=== PATIENT | female | born 1985 | race Caucasian/White ===

== ENCOUNTER 2019-10-24 06:49 | Inpatient (IN) | payer OTHER, SELFPAY ==
[2019-10-24] VITALS (97 sets, daily range): BP systolic 91–163; BP diastolic 49–144; PULSE 76–216; TEMP 36.6–38; O2SAT 97–100; BMI 29.5
[2019-10-24 08:11] LABS: Basophils Percent Auto 0.3 % (0.2-1.2); Eosinophils Absolute Auto 0.1 K/mm3 (0-0.3); Eosinophils Percent Auto 1.1 % (0-4.4); Hematocrit 36.9 % (37.0-47.0); Hemoglobin 12.4 g/dL (12.0-15.0); Immature Granulocyte Absolute 0.05 K/mm3 (0.00-0.031); Immature Granulocyte Percent A 0.5 % (0-0.5); Immature Platelet Fraction Pct 8.2 % (0.9-11.2); Lymphocytes Absolute Auto 1.68 K/mm3 (0.9-3.2); Lymphocytes Percent Auto 16.1 % (18.3-44.2); Mean Corpuscular HGB Conc 33.6 g/dl (32-36); Mean Corpuscular Hemoglobin 31.7 pg (26-34); Mean Corpuscular Volume 94.4 fl (80-100); Mean Platelet Volume 11.4 fl (7.4-10.4); Monocytes Absolute Auto 0.8 K/mm3 (0.1-0.6); Neutrophils Absolute Auto 7.7 K/mm3 (1.3-6.7); Platelet Count Result 128 k/mm3 (150-375); Red Blood Count 3.91 M/mm3 (4.2-5.4); Red Cell Distribution Width 12.1 % (11.5-14.5); White Blood Count 10.4 K/mm3 (4.5-10.0)
--- NOTE | 2019-10-24 08:29 | WPDHPUPDATE1 ---
History and Physical Update Update Date/Time: 10/24/19 08:29 33 yo at 40w2d who presents after SROM. She reports ctx every 5 min. She endorses good movement. She denies any vaginal bleeding. Her has been uncomplicated thus far. History and Physical has been reviewed, including an updated exam of the patient. There are NO changes in the patient's condition. Risks, benefits, and alternatives have been discussed and questions answered. Patient agrees to proceed with procedure. A/P: 33 yo at 40w2d who presents after SROM admit to L&D routine admission orders SROM at 0300 pt refusing cervical exam, last 1 cm in office FHT cat 1 Rh+ GBS neg expectant management
--- NOTE | 2019-10-24 08:39 | LDADM ---
This patient, Gin Pelaez, was admitted to Labor/Delivery/Recovery 107 on 10/24/19 at 06:49. Plans for labor, pain management and were discussed with patient. Patient/family oriented to hospital policies and general routines including ID bracelet, bed and alarms, visiting hours, pain management, procedures, bathroom and other care routines, personal items, smoking policy, room service/diet and guest tray routines, infant security routines, and visiting hours. Patient/Family are encouraged to report perceived risks to care and to ask questions if they do not understand what they are told or what they should do. See OBIX for further documentation.
[2019-10-24] MEDS: LACTATED RINGERS 1,000 ML 125 ML IV CONT ×3 (15:00→21:49)
--- NOTE | 2019-10-24 15:12 | WPDANESEPP ---
Anes - Eval Pre Procedure Procedure: labor epidural Date/Time: 10/24/19 15:12 Surgeon: amy mathews Pre Op Diagnosis: leaking Patient Data Age: 33 Gender: F Height: 1.57 m Weight: 73.18 kg Last Vital Signs Temp 37.2 C 10/24/19 13:15 Pulse 92 10/24/19 14:04 BP 142/70 H 10/24/19 14:04 Allergies Allergy/AdvReac Type Severity Reaction Status Date / Time acetaminophen [From Vicodin] Allergy Rash Verified 10/07/19 13:30 hydrocodone [From Vicodin] Allergy Rash Verified 10/07/19 13:30 Home Medications Medication Instructions Recorded Confirmed Type PNV cmb#95-ferrous fumarate-FA 1 tablet PO DAILY 10/07/19 10/07/19 History [] omega 2-knk-qgx-fish oil 1 cap PO DAILY 10/07/19 10/07/19 History vitamin D3-vitamin K2 (MK4) 5 tablet PO DAILY 10/07/19 10/07/19 History Laboratory Tests 10/24/19 10/24/19 10/24/19 07:36 07:36 07:36 WBC 10.4 K/mm3 H K/mm3 (4.5-10.0) RBC 3.91 M/mm3 L M/mm3 (4.2-5.4) Hgb 12.4 g/dL g/dL (12.0-15.0) Hct 36.9 % L % (37.0-47.0) MCV 94.4 fl fl (80-100) MCH 31.7 pg pg (26-34) MCHC 33.6 g/dl g/dl (32-36) RDW 12.1 % % (11.5-14.5) Plt Count 128 k/mm3 L k/mm3 (150-375) MPV 11.4 fl H fl (7.4-10.4) Immature Gran % (Auto) 0.5 % % (0-0.5) Neut % (Auto) 74.0 % H % (45.5-73.1) Lymph % (Auto) 16.1 % L % (18.3-44.2) Summers % (Auto) 8.0 % % (2.6-8.5) Eos % (Auto) 1.1 % % (0-4.4) Baso % (Auto) 0.3 % % (0.2-1.2) Lymph # (Auto) 1.68 K/mm3 K/mm3 (0.9-3.2) Summers # (Auto) 0.8 K/mm3 H K/mm3 (0.1-0.6) Eos # (Auto) 0.1 K/mm3 K/mm3 (0-0.3) Baso # (Auto) 0.0 K/mm3 K/mm3 (0.0-0.1) Abs Immat Gran (auto) 0.05 K/mm3 H K/mm3 (0.00-0.031) Absolute Neuts (auto) 7.7 K/mm3 H K/mm3 (1.3-6.7) Absolute Nucleated RBC 0.0 K/mm3 K/mm3 (0.0-0.012) Nucleated RBC % 0.0 % % (0.0-0.2) % Immature Plt Fraction 8.2 % % (0.9-11.2) RPR Pending Blood Type O Positive Antibody Screen Negative Patient hx anesthesia problems: none Family hx anesthesia problems: none [facility] Family History Family History (Updated 10/07/19 @ 13:41 by Belem Terry RN) Other Unknown family medical history Social History Social History Smoking status: Never smoker Substance use: never Spiritual care concerns: No Exam Day of Procedure 10/24/19 15:12
[2019-10-24] MEDS: AMPICILLIN 2 GM/NS 100 ML 2 GM/100 ML BAG IVPB (20:05)
[2019-10-24] MEDS: OXYTOCIN 30 UNITS/NS 500 ML 30 UNITS/500 ML BAG 6 UNITS IV CONT (20:18)
[2019-10-25] VITALS (49 sets, daily range): BP systolic 92–194; BP diastolic 53–155; PULSE 56–161; RESP 12–20; TEMP 36.6–37.8; O2SAT 80–100
[2019-10-25] MEDS: AMPICILLIN 1 GM/NS 50 ML 1 GM/50 ML BAG IVPB (00:07)
--- NOTE | 2019-10-25 03:47 | P.PNOB_ITS ---
Pain Control Date/time seen: 10/25/19 03:47 Pain control: epidural Comments: pt has had an anterior lip for several hours. We have tried several attempts at pushing, re-positioning, and pushing again. head is developing a significant amount of caput. station will advance to +1 with contractions but returns to 0 immediately after. Pelvic Exam Dilation (cm): 10 Effacement (%): 100 station: 0 Amniotic membrane status: Ruptured Contractions Monitor mode: External Contraction frequency: 2 Contraction pattern: Regular Status status: Category l Assessment and Plan Pitocin rate (mU/min): 14 Assessment: active labor Plan: Comments: station not advancing despite several hours of pitocin, re- positioning, and pushing. Concern with worsening caput. recommended proceeding with delivery. pt and verbally agreed with plan. will proceed with primary section.
--- NOTE | 2019-10-25 05:36 | WPDANESEPPF ---
Anes - Initial Pre Proc Eval Procedure: Operation Date: 10/25/19 04:00 Proposed Procedures p Section - Jose Beavers MD Date/Time: 10/25/19 04:00 Surgeon: MD Nimesh Pre Op Diagnosis: failure to descend Patient Data Age: 33 Gender: F Height: 1.57 m Weight: 73.18 kg Last Vital Signs Temp 37.1 C 10/25/19 05:24 Pulse 128 H 10/25/19 05:24 Resp 15 10/25/19 05:24 BP 92/83 L 10/25/19 05:24 Pulse Ox 100 10/25/19 05:26 Allergies Allergy/AdvReac Type Severity Reaction Status Date / Time acetaminophen [From Vicodin] Allergy Rash Verified 10/07/19 13:30 hydrocodone [From Vicodin] Allergy Rash Verified 10/07/19 13:30 Home Medications Medication Instructions Recorded Confirmed Type PNV cmb#95-ferrous fumarate-FA 1 tablet PO DAILY 10/07/19 10/07/19 History [] omega 2-dmg-jwr-fish oil 1 cap PO DAILY 10/07/19 10/07/19 History vitamin D3-vitamin K2 (MK4) 5 tablet PO DAILY 10/07/19 10/07/19 History Laboratory Tests 10/24/19 10/24/19 10/24/19 07:36 07:36 07:36 WBC 10.4 K/mm3 H K/mm3 (4.5-10.0) RBC 3.91 M/mm3 L M/mm3 (4.2-5.4) Hgb 12.4 g/dL g/dL (12.0-15.0) Hct 36.9 % L % (37.0-47.0) MCV 94.4 fl fl (80-100) MCH 31.7 pg pg (26-34) MCHC 33.6 g/dl g/dl (32-36) RDW 12.1 % % (11.5-14.5) Plt Count 128 k/mm3 L k/mm3 (150-375) MPV 11.4 fl H fl (7.4-10.4) Immature Gran % (Auto) 0.5 % % (0-0.5) Neut % (Auto) 74.0 % H % (45.5-73.1) Lymph % (Auto) 16.1 % L % (18.3-44.2) Dale % (Auto) 8.0 % % (2.6-8.5) Eos % (Auto) 1.1 % % (0-4.4) Baso % (Auto) 0.3 % % (0.2-1.2) Lymph # (Auto) 1.68 K/mm3 K/mm3 (0.9-3.2) Dale # (Auto) 0.8 K/mm3 H K/mm3 (0.1-0.6) Eos # (Auto) 0.1 K/mm3 K/mm3 (0-0.3) Baso # (Auto) 0.0 K/mm3 K/mm3 (0.0-0.1) Abs Immat Gran (auto) 0.05 K/mm3 H K/mm3 (0.00-0.031) Absolute Neuts (auto) 7.7 K/mm3 H K/mm3 (1.3-6.7) Absolute Nucleated RBC 0.0 K/mm3 K/mm3 (0.0-0.012) Nucleated RBC % 0.0 % % (0.0-0.2) % Immature Plt Fraction 8.2 % % (0.9-11.2) RPR Pending Blood Type O Positive Antibody Screen Negative Patient hx anesthesia problems: none Family hx anesthesia problems: none [facility] Family History Family History Other Unknown family medical history Social History Social History Smoking status: Never smoker Substance use: never Spiritual care concerns: No Anes - Eval Final PreProcedure Day of Procedure 10/25/19 05:36 Heart: regular rate and rhythm Lungs: clear to auscultation and normal air movement Airway: Mallampati scale class 1 Neurological: alert and oriented ASA classification: II Emergent: yes Anesthetic plan: proceed Anesthesia type and monitoring: regional epidural and standard monitoring Informed Consent: The patient's anesthetic plan and its attendant risks and benefits were discussed with the patient/family/POA. Questions were solicited and answers provided to the satisfaction of the patient/family/POA.
--- NOTE | 2019-10-25 06:51 | PM.PROC ---
Procedure Note - Detailed Date of procedure: 10/25/19 Pre-op diagnosis: failure to descend arrest of descent Post-op diagnosis: same Procedure performed: repeat low transverse section Description of procedure: The patient was taken to the operating room where epidural anesthesia was found to be adequate. She was then prepped and draped in the usual sterile fashion in the dorsal supine position with a leftward tilt. A Pfannenstiel skin incision was then made with the scalpel and carried through to the underlying layer of fascia. The fascia was then incised in the midline and the incision extended laterally with the Major scissors. The superior aspect of the fascia was then grasped with the Linda clamps, elevated, and the underlying rectus muscles dissected off bluntly and sharply. Attention was then turned to the inferior aspect of this incision which, in a similar fashion, was grasped, tented up with the Linda clamps, and the rectus muscles dissected off both bluntly and sharply. The rectus muscles were then in the midline, and the peritoneum identified, tented up, and entered sharply with the Metzenbaum scissors. The peritoneal incision was then extended superiorly and inferiorly with good visualization of the bladder. The bladder blade was then inserted and the vesicouterine peritoneum identified, grasped with the pick-ups and entered sharply with the Metzenbaum scissors. This incision was then extended laterally and the bladder flap created digitally. The bladder blade was then reinserted and the lower uterine segment incised in a low, transverse fashion with the scalpel. The uterine incision was then extended laterally with the bandage scissors. The bladder blade was removed and the infant?s head delivered atraumatically. The nose and mouth were suctioned with the bulb suction, and the remainder of the was delivered atraumatically. The cord was clamped and cut. The infant was handed off to the waiting pediatricians (staff). Cord gasses were sent. The placenta was then removed manually, the uterus exteriorized, and cleared of all clots and debris. The uterine incision was repaired with 0 Monocryl in a running, locking fashion. A 2nd imbricating layer of 0-monocryl was placed in the uterus. The uterus was returned to the abdomen. The uterus was then reinspected to ensure hemostasis as were all subfascial tissues. The muscles were re-approximated with 2 interuptted mattress sutures. The fascia was reapproximated with 0 vicryl in a running fashion. The subcutaneous tissue was reapproximated using 3-0 Vicryl in a running fashion. The skin was closed with 4-0 vicryl. The patient tolerated the procedure well. Sponge, lap and needle counts were correct times three. The patient was taken to the recovery room in stable condition. Anesthesia: epidural Surgeon: Jose Beavers MD Estimated blood loss (mL): 620 IV fluids (mL): 1,000 Urine output (mL): 150 Drains: No Packing: No Pathology: none sent Complications: No immediate complications Condition: stable Disposition: floor ( ) Findings: normal appearing uterus, fallopian tubes, and ovaries bilaterally
[2019-10-25] MEDS: OXYTOCIN 30 UNITS/NS 500 ML 30 UNITS/500 ML BAG 125 UNITS IV CONT (07:44)
--- NOTE | 2019-10-25 08:48 | OBPPTRN ---
Patient transferred to post room #288 via stretcher. Oriented to unit, room, information board, rooming in, admission packet and security measures. Patient verbalizes understanding.
[2019-10-25] MEDS: KCL 20 MEQ/D5/0.45% SOD CHL 1,000 ML 125 ML IV CONT (13:44)
[2019-10-25] MEDS: KETOROLAC 30 MG/ML VIAL (*BKC) IV PUSH (13:45)
[2019-10-25] MEDS: IBUPROFEN 600 MG TABLET PO (19:16)
[2019-10-25] MEDS: SIMETHICONE 80 MG TAB.CHEW PO ×2 (19:16→22:44)
[2019-10-25] MEDS: ACETAMINOPHEN 325 MG TABLET 650 MG PO (22:44)
[2019-10-26] MEDS: IBUPROFEN 600 MG TABLET PO ×2 (04:16→10:50)
[2019-10-26] MEDS: SIMETHICONE 80 MG TAB.CHEW PO ×3 (04:30→15:14)
[2019-10-26 05:15] LABS: Basophils Absolute Auto 0.1 K/mm3 (0.0-0.1); Basophils Percent Auto 0.5 % (0.2-1.2); Eosinophils Absolute Auto 0.1 K/mm3 (0-0.3); Eosinophils Percent Auto 0.6 % (0-4.4); Hemoglobin 10.1 g/dL (12.0-15.0); Immature Granulocyte Absolute 0.07 K/mm3 (0.00-0.031); Immature Granulocyte Percent A 0.5 % (0-0.5); Immature Platelet Fraction Pct 4.5 % (0.9-11.2); Lymphocytes Absolute Auto 1.49 K/mm3 (0.9-3.2); Lymphocytes Percent Auto 11.3 % (18.3-44.2); Mean Corpuscular HGB Conc 33.7 g/dl (32-36); Mean Corpuscular Hemoglobin 32.7 pg (26-34); Mean Corpuscular Volume 97.1 fl (80-100); Mean Platelet Volume 11.4 fl (7.4-10.4); Monocytes Absolute Auto 1.1 K/mm3 (0.1-0.6); Monocytes Percent Auto 8.2 % (2.6-8.5); Neutrophils Absolute Auto 10.4 K/mm3 (1.3-6.7); Neutrophils Percent Auto 78.9 % (45.5-73.1); Platelet Count Result 134 k/mm3 (150-375); Red Blood Count 3.09 M/mm3 (4.2-5.4); Red Cell Distribution Width 12.7 % (11.5-14.5); White Blood Count 13.2 K/mm3 (4.5-10.0)
--- NOTE | 2019-10-26 07:07 | P.PNOB_ITS ---
OB - PN: Subj Subjective Date/time seen: 10/26/19 07:07 Patient comments: no complaints, pain well controlled, tolerating diet and flatus present OB - PN: Obj Data Labs CBC & Chem 7: 10/26/19 04:46 Labs: Laboratory Results - last 24 hr 10/26/19 04:46 WBC 13.2 H RBC 3.09 L Hgb 10.1 L Hct 30.0 L MCV 97.1 MCH 32.7 MCHC 33.7 RDW 12.7 Plt Count 134 L MPV 11.4 H Immature Gran % (Auto) 0.5 Neut % (Auto) 78.9 H Lymph % (Auto) 11.3 L Angelina % (Auto) 8.2 Eos % (Auto) 0.6 Baso % (Auto) 0.5 Lymph # (Auto) 1.49 Angelina # (Auto) 1.1 H Eos # (Auto) 0.1 Baso # (Auto) 0.1 Abs Immat Gran (auto) 0.07 H Absolute Neuts (auto) 10.4 H Absolute Nucleated RBC 0.0 Nucleated RBC % 0.0 % Immature Plt Fraction 4.5 OB - PN A/P Plan day: 1 Plan: routine care Comments: patient doing well H/H stable afebrile, VSS incision C/D/I to removed, voiding spontaneously continue routine post op care Time Spent With Patient Time: Total time spent is greater than 50% in coordination of care (as documented) at patient's floor/unit and/or counseling patient: Time with patient: less than 15 minutes Review of Systems Constitutional: Constitutional: Reports no additional constitutional complaints Cardiovascular: Cardiovascular: Reports no additional cardiovascular complaints Respiratory: Respiratory: Reports no additional respiratory complaints Gastrointestinal: Gastrointestinal: Reports no additional gastrointestinal complaints Genitourinary: Genitourinary: Reports no additional female genitourinary complaints Exam Const: General: comfortable and no acute distress Resp: Effort & Inspection: normal respiratory effort Auscultation: clear to auscultation bilaterally Cardio: Rate: regular rate GI: GI Palp: Yes Soft to palpation, Yes Tenderness to palpation present (GI) (around incision ) and No Guarding due to palpation present (GI) Auscultation: normal bowel sounds Other: incision C/D/I, covered with Dermabond Psych: Appearance: grossly normal Mental Status: mental status grossly normal Affect: normal affect
[2019-10-26 07:30] VITALS: BP 123/83; PULSE 80; RESP 16; TEMP 36.8; O2SAT 100
[2019-10-26] MEDS: MULTIVIT/MIN/PREN/FOL AC/IRON TABLET 1 TAB PO (07:32)
[2019-10-26] MEDS: ACETAMINOPHEN 325 MG TABLET 650 MG PO ×3 (07:33→22:59)
[2019-10-26] MEDS: DOCUSATE SODIUM 100 MG CAPSULE PO ×2 (07:33→15:13)
[2019-10-26] MEDS: LANOLIN (LANSINOH) 7.5 GM CREAM 1 APPLIC TOPICAL (07:34)
--- NOTE | 2019-10-26 10:26 | WPDANLDPN2 ---
Anes-Prog Note L&D Date/Time: 10/26/19 10:26 Comfortable throughout: section Neuraxial method: spinal Epidural/Spinal procedure site: clean & non-tender Neuro status: Neuro function grossly intact. Cardiovascular status: normal Respiratory status: normal Airway patency: baseline Mental status: baseline Post-Op hydration status: normal Vital Signs: Last Vital Signs Temp 36.8 C 10/26/19 07:30 Pulse 80 10/26/19 07:30 Resp 16 10/26/19 07:30 BP 123/83 10/26/19 07:30 Pulse Ox 100 10/26/19 07:30 Pain score (VAS): Gin up and walking around room. I/O: Intake & Output 10/25/19 10/26/19 10/26/19 23:59 07:59 15:59 Intake Total 883 Output Total 500 Balance 383 Post-procedural complaints: none Patient feedback: Patient satisfied with anesthetic care.
--- NOTE | 2019-10-26 10:32 | WPDANLDNPN2 ---
Anes-Prog Note L&D-Neuraxial Date/Time: 10/26/19 10:32 Patient feedback: Patient satisfied with post-operative pain management.
[2019-10-26 11:34] LABS: Rapid Plasma Reagin Non-Reactive (NonReactive)
[2019-10-26 14:15] VITALS: BP 120/83; PULSE 96; RESP 20; O2SAT 100
--- NOTE | 2019-10-26 19:00 | PC.NURSE ---
Patient viewed the discharge video Mother & Baby Care, The First Two Weeks . Patient was given the opportunity and encouraged to ask questions. Patient verbalized understanding of information shared and has been given the mother/baby guide for home reference.
[2019-10-26 20:40] VITALS: BP 133/87; PULSE 92; RESP 16; TEMP 37.2; O2SAT 100
[2019-10-27] MEDS: IBUPROFEN 600 MG TABLET PO (03:56)
--- NOTE | 2019-10-27 06:53 | PM.OBPNVD ---
OB - PN: Subj Subjective Date/time seen: 10/27/19 06:53 Patient comments: no complaints and pain well controlled baby status: doing well and nursing well OB - PN: Obj Data Labs CBC & Chem 7: 10/26/19 04:46 Labs: Laboratory Results - last 24 hr 10/24/19 07:36 RPR Non-reactive OB - PN A/P Plan day: 2 Plan: routine care, discharge home and follow up 6 weeks (4 weeks) Time Spent With Patient Time: Total time spent is greater than 50% in coordination of care (as documented) at patient's floor/unit and/or counseling patient: Time with patient: less than 15 minutes Review of Systems Review of Systems: All systems reviewed & are unremarkable except as noted in HPI and below Exam Const: General: no acute distress Eyes: General: appearance normal, both eyes and all related structures Neck: Neck: supple and no JVD Thyroid: thyroid normal Resp: Effort & Inspection: normal respiratory effort Auscultation: clear to auscultation bilaterally Cardio: Rate: regular rate Rhythm: regular rhythm GI: Inspection: normal to inspection (fundus firm) and incision (cdi) Percussion: Yes normal to percussion : General: Yes other (flow light) Skin: General skin exam: no rashes or lesions noted Extrem: General: normal to inspection and no edema Psych: Mental Status: mental status grossly normal Affect: normal affect
--- NOTE | 2019-10-27 07:04 | P.DS_ITS ---
OB - DS: Summary OB Procedures : None OB Procedures Intrapartum: OB Procedures: : None Peripartum Data Delivery Method: Section Procedures: Procedures Operation Date: 10/25/19 04:00 Actual Procedures Side Surgeon p Section Jose Beavers MD complications: none Status at Discharge Functional status at discharge: independent ambulation Overall status at discharge: patient is progressing back to baseline Time Spent with Patient Time attestation: Total time spent providing and/or coordinating discharge services: Time spent: Less than 30 minutes Exam Const: General: comfortable and no acute distress Resp: Effort & Inspection: normal respiratory effort Auscultation: clear to auscultation bilaterally Cardio: Rate: regular rate GI: Inspection: non-distended GI Palp: Yes Soft to palpation, No Firmness to palpation present (GI), Yes Tenderness to palpation present (GI) (mild tenderness over incision ) and No Guarding due to palpation present (GI) Auscultation: normal bowel sounds Psych: Appearance: grossly normal Mental Status: mental status grossly normal DS: Data Data Completed and Pending Pending studies at discharge: Pending at discharge 10/25/19 04:31 Surgical [PTH] Routine Labs on day of discharge: Labs from last 24 hours 10/24/19 07:36 RPR Non-reactive Discharge Plan Discharge Attending physician on discharge: Shashi Rodriguez Discharging Clinician: Shashi Rodriguez Patient Disposition: Home, Self-Care Activity: may shower, no straining, may drive after 2 weeks and pelvic rest Diet: heart healthy Wound Care Instructions: follow printed instructions Patient Instructions: Antibiotic Form Stand Alone Forms: General Discharge Information Follow-up/Referrals: Shashi Rodriguez MD [Physician] - Discharge Medications: No Action PNV cmb#95-ferrous fumarate-FA [] 28 mg iron- 800 mcg Tablet 1 tablet PO DAILY RF: 0 vitamin D3-vitamin K2 (MK4) 1,000-100 unit-mcg Tablet 5 tablet PO DAILY RF: 0 omega 3-mrk-npk-fish oil 900 mg (320 mg- 580mg)-1,360 mg Capsule 1 cap PO DAILY RF: 0 Date of admission: 10/24/19 06:49 Primary Care Provider: PHYSICIAN,STATIONARY ENGINEER APPRENTICE Admitting Provider: Shashi Rodriguez Attending physician on admission: Shashi Rodriguez
[2019-10-27 08:10] VITALS: BP 120/77; PULSE 80; RESP 16; TEMP 37.1; O2SAT 100
[2019-10-27] MEDS: DOCUSATE SODIUM 100 MG CAPSULE PO (09:24)
[2019-10-27] MEDS: MULTIVIT/MIN/PREN/FOL AC/IRON TABLET 1 TAB PO (09:24)
[2019-10-27] MEDS: ACETAMINOPHEN 325 MG TABLET 650 MG PO (09:25)
--- NOTE | 2019-10-27 11:00 | PC.NURSE ---
Observed mother is able to independently latch with appropriate positioning/alignment. She denies any nipple discomfort, is feeding as required and waking infant to feed if needed. has had at least 8 effective feedings in the past 24 hours, and is currently meeting outcomes for weight, output, jaundice and feeding frequencies. Mother states she feels confident to continue effective at home. Reviewed transition to breast milk, signs of adequate intake, and engorgement/relief. Instructed to call ICP if intake/output less than required. Reviewed regular medications mother is taking. Information provided per Trudi. Reviewed community resources on the [facility] website and in the Mom/Baby guide. Information on outpatient services provided. Mother has no further questions at this time.
[2019-10-28 10:00] VITALS: BP 146/93; PULSE 80; RESP 20; TEMP 37.1; O2SAT 98
--- NOTE | 2019-11-03 07:00 | PM.IMHP ---
H&P: HPI History of Present Illness Chief complaint: failure to descend Narrative: 33 yo at 40w2d who presents after SROM. She reports ctx every 5 min. She endorses good movement. She denies any vaginal bleeding. Her has been uncomplicated thus far. History and Physical has been reviewed, including an updated exam of the patient. There are NO changes in the patient's condition. Risks, benefits, and alternatives have been discussed and questions answered. Patient agrees to proceed with procedure. Review of Systems Cardiovascular: Cardiovascular: Denies chest pain, Denies leg edema, Denies palpitations, Denies dyspnea and Denies dyspnea on exertion Respiratory: Respiratory: Denies cough, Denies dyspnea and Denies dyspnea on exertion Gastrointestinal: Gastrointestinal: Denies abdominal pain, Denies constipation, Denies diarrhea, Denies nausea and Denies vomiting Genitourinary: Genitourinary: Denies hematuria, Denies urinary frequency, Denies dysuria, Denies pelvic pain, Denies urinary incontinence and Denies vaginal discharge Neurologic: Reports system reviewed and no additional complaints, except as documented Psychiatric: Psychiatric: Reports no additional psychiatric complaints Endocrine: Endocrine: Denies palpitations [facility] Family History Family History Other Unknown family medical history Social History Social History Smoking status: Never smoker Substance use: never Spiritual care concerns: No Meds Home Medications and Allergies Home Medications Medication Instructions Recorded Confirmed Type PNV cmb#95-ferrous fumarate-FA 1 tablet PO DAILY 10/07/19 10/07/19 History [] omega 2-vwo-owc-fish oil 1 cap PO DAILY 10/07/19 10/07/19 History vitamin D3-vitamin K2 (MK4) 5 tablet PO DAILY 10/07/19 10/07/19 History Allergies Allergy/AdvReac Type Severity Reaction Status Date / Time acetaminophen [From Vicodin] Allergy Rash Verified 10/07/19 13:30 hydrocodone [From Vicodin] Allergy Rash Verified 10/07/19 13:30 Exam Const: General: no acute distress Eyes: EOM: EOMs intact bilaterally Neck: Neck: supple Thyroid: thyroid normal Chest: Breast/axilla inspection: normal inspection of the breasts Breast/axilla palpation: normal palpation of the breasts, normal palpation of the axillae and no axillary lymphadenopathy Resp: Effort & Inspection: normal respiratory effort Auscultation: clear to auscultation bilaterally Cardio: Rate: regular rate Rhythm: regular rhythm GI: Inspection: non-distended GI Palp: Yes Soft to palpation, No Tenderness to palpation present (GI) and No Guarding due to palpation present (GI) Auscultation: normal bowel sounds : General: No bladder normal to palpation External Female Exam: normal external appearance Speculum Exam - Vagina: normal vaginal discharge and No vaginal bleeding Speculum Exam - Cervix: nontender Bimanual exam- vagina & uterus: No bladder normal to palpation and No Cervical tenderness present OB/external & speculum: No vaginal bleeding Skin: General skin exam: normal color and no rashes or lesions noted Neuro: Cognition (Neuro): normal cognition Speech: normal speech Extrem: General: normal to inspection and no edema Psych: Mental Status: mental status grossly normal Affect: normal affect Assessment and Plan Assessment and plan (1) Supervision of high risk , unspecified, third trimester: Code(s): O09.93 - Supervision of high risk , unspecified, third trimester Status: Acute Assessment and Plan: A/P: 33 yo at 40w2d who presents after SROM admit to L&D routine admission orders SROM at 0300 pt refusing cervical exam, last 1 cm in office FHT cat 1 Rh+ GBS neg expectant management
== END 2019-10-27 13:30 | disposition home or self-care (01) | DRG 787 ==
LOC: ANHLDR 10-25 05:38 → ANHOB2 10-25 07:51
PROVIDERS: Student in an Organized Health Care Education/Training Program; Admitting Provider Obstetrics & Gynecology; Visit Provider Obstetrics & Gynecology
PROC: (CPT 59514; principal; 2019-10-25 04:00)
DX: O34.211 Maternal care for low transverse scar from previous cesarean delivery (principal); O75.2 Pyrexia during labor, not elsewhere classified; Z37.0 Single live birth; Z3A.40 40 weeks gestation of pregnancy; O63.1 Prolonged second stage (of labor); O32.4XX0 Maternal care for high head at term, not applicable or unspecified
CPT/HCPCS: 36415; 85025; 85055; 86592; 86850; 86900; 86901; 88307; A9270; J0131; J0290; J1885; J2274; J2370; J2405; J2590; J2795; J3010; J3480; J7120

== ENCOUNTER 2019-10-28 17:35 | Outpatient (CLI) | payer OTHER, SELFPAY ==
[2019-10-28 18:08] VITALS: BP 149/87; PULSE 90
[2019-10-28 18:15] VITALS: BP 137/82; PULSE 78
--- NOTE | 2019-10-28 18:20 | PC.NURSE ---
called, informed pt came in stating her bp at home was 140/100 and she feels like her vision is off and that her bp is high pt states she normally self medicates with progesterone and started again last night because she feels like it is low. Pt states she has had a headache and is alternating motrin and tylenol. Current bp is 149/87, orders received for PIH labs and to instruct the pt not to take progesterone, rest more, focus on being a new mom and recovering.
[2019-10-28 18:30] VITALS: BP 121/76; PULSE 87
[2019-10-28 18:33] LABS: Basophils Percent Auto 0.4 % (0.2-1.2); Eosinophils Absolute Auto 0.2 K/mm3 (0-0.3); Hematocrit 30.9 % (37.0-47.0); Hemoglobin 10.4 g/dL (12.0-15.0); Immature Granulocyte Absolute 0.05 K/mm3 (0.00-0.031); Immature Granulocyte Percent A 0.5 % (0-0.5); Lymphocytes Absolute Auto 1.37 K/mm3 (0.9-3.2); Lymphocytes Percent Auto 14.2 % (18.3-44.2); Mean Corpuscular HGB Conc 33.7 g/dl (32-36); Mean Corpuscular Hemoglobin 32.2 pg (26-34); Mean Corpuscular Volume 95.7 fl (80-100); Mean Platelet Volume 10.3 fl (7.4-10.4); Monocytes Absolute Auto 0.6 K/mm3 (0.1-0.6); Monocytes Percent Auto 5.7 % (2.6-8.5); Neutrophils Absolute Auto 7.4 K/mm3 (1.3-6.7); Neutrophils Percent Auto 77.2 % (45.5-73.1); Platelet Count Result 231 k/mm3 (150-375); Red Blood Count 3.23 M/mm3 (4.2-5.4); Red Cell Distribution Width 11.9 % (11.5-14.5); White Blood Count 9.6 K/mm3 (4.5-10.0)
[2019-10-28 18:45] VITALS: BP 129/77; PULSE 77
[2019-10-28 18:49] LABS: Alanine Aminotransferase 14 U/L (4-35); Albumin Level 3.3 g/dL (3.5-5.1); Alkaline Phosphatase 110 U/L (38-126); Aspartate Amino Transferase 19 U/L (14-36); Bilirubin,Total 0.5 mg/dL (0.2-1.3); Blood Urea Nitrogen 16 mg/dL (7-17); Calcium 9.3 mg/dL (8.4-10.2); Carbon Dioxide 25 mmol/L (22-30); Chloride 106 mmol/L (98-107); Estimated Glomerular Filt Rate > 60; Glucose 109 mg/dL (65-105); Sodium 135 mmol/L (137-145); Uric Acid 3.4 mg/dL (2.5-7.5)
[2019-10-28 19:00] VITALS: BP 135/85; PULSE 80
== END 2019-10-28 19:15 | disposition home or self-care (01) ==
LOC: ANHOBOP 17:40 → ANHOBPP 17:42
PROVIDERS: Visit Provider Obstetrics & Gynecology
DX: O13.9 Gestational [pregnancy-induced] hypertension without significant proteinuria, unspecified trimester (principal); Z3A.00 Weeks of gestation of pregnancy not specified
CPT/HCPCS: 36415; 80053; 84550; 85025; 99199

== ENCOUNTER 2020-02-01 01:28 | Day surgery (SDC) | payer OTHER, SELFPAY ==
[2020-01-19 15:13] VITALS: BMI 23.8
--- NOTE | 2020-01-27 07:43 | PM.IMHP ---
H&P: HPI History of Present Illness Date/Time: 01/27/20 07:43 Chief complaint: Uterine Polyp, Irregular Bleeding Narrative: Gin Pelaez is a 34 year old female is admitted for hysteroscopy dilatation curettage and polypectomy. She has had irregular bleeding. She underwent an ultrasound in the appears to be an 8mm polyp in the uterus. Risks and benefits were reviewed in full. She received the [employer] handout entitled hysteroscopy as well as dilatation curettage respectively. She asked to proceed Review of Systems Review of Systems: All systems reviewed & are unremarkable except as noted in HPI and below PMFSH Family History Family History Other Unknown family medical history Social History Social History Smoking status: Never smoker Substance use: never Spiritual care concerns: No Meds Home Medications and Allergies Home Medications Medication Instructions Recorded Confirmed Type PNV cmb#95-ferrous fumarate-FA 1 tablet PO DAILY 10/07/19 01/19/20 History [] omega 6-zmr-tww-fish oil 1 cap PO DAILY 10/07/19 01/19/20 History vitamin D3-vitamin K2 (MK4) 5 tablet PO DAILY 10/07/19 01/19/20 History Allergies Allergy/AdvReac Type Severity Reaction Status Date / Time hydrocodone [From Vicodin] Allergy Rash Verified 01/19/20 15:14 Exam Const: General: no acute distress Eyes: General: appearance normal, both eyes and all related structures Neck: Neck: supple and no JVD Thyroid: thyroid normal Resp: Effort & Inspection: normal respiratory effort Auscultation: clear to auscultation bilaterally Cardio: Rate: regular rate Rhythm: regular rhythm GI: Inspection: non-distended GI Palp: Yes Soft to palpation, No Tenderness to palpation present (GI) and No Guarding due to palpation present (GI) Auscultation: normal bowel sounds : General: Yes bladder normal to palpation External Female Exam: normal external appearance Speculum Exam - Vagina: normal vaginal discharge and No vaginal bleeding Speculum Exam - Cervix: nontender Bimanual exam- vagina & uterus: bladder normal to palpation and No Cervical tenderness present OB/external & speculum: No vaginal bleeding Skin: General skin exam: no rashes or lesions noted Extrem: General: normal to inspection and no edema Psych: Mental Status: mental status grossly normal Affect: normal affect Assessment and Plan Additional Plan impression: Bleeding suspected secondary to uterine polyp Plan: Hysteroscopy /polypectomy/ dilatation curettage
--- NOTE | 2020-02-01 05:41 | WPDHPUPDATE1 ---
History and Physical Update Update Date/Time: 02/01/20 05:41 History and Physical has been reviewed, including an updated exam of the patient. There are NO changes in the patient's condition. Risks, benefits, and alternatives have been discussed and questions answered. Patient agrees to proceed with procedure.
[2020-02-01] MEDS: LACTATED RINGERS 1,000 ML 30 ML IV CONT (06:20)
[2020-02-01] MEDS: ACETAMINOPHEN 500 MG TABLET 1000 MG PO (06:24)
[2020-02-01 06:30] VITALS: BP 116/82; PULSE 59; RESP 16; TEMP 36.6; O2SAT 100
--- NOTE | 2020-02-01 06:53 | WPDANESEPPF ---
Anes - Initial Pre Proc Eval Procedure: Operation Date: 02/01/20 07:30 Proposed Procedures p Hysteroscopy Dilation and Curettage With Polypectomy - Shashi Rodriguez MD Date/Time: 02/01/20 06:53 Surgeon: Shashi Rodriguez MD Pre Op Diagnosis: Uterine Polyp, Irregular Bleeding Patient Data Age: 34 Gender: F Height: 1.57 m Weight: 59.3 kg Allergies Allergy/AdvReac Type Severity Reaction Status Date / Time hydrocodone [From Vicodin] Allergy Mild Rash Verified 02/01/20 06:04 Home Medications Medication Instructions Recorded Confirmed Type omega 9-dgj-sac-fish oil 1 cap PO DAILY 10/07/19 02/01/20 History vitamin D3-vitamin K2 (MK4) 5 tablet PO DAILY 10/07/19 02/01/20 History Patient hx anesthesia problems: none Family hx anesthesia problems: none [facility] Family History Family History Other Unknown family medical history Social History Social History Smoking status: Never smoker Substance use: never Spiritual care concerns: No Anes - Eval Final PreProcedure Day of Procedure 02/01/20 06:53 Patient weight: normal Heart: regular rate and rhythm Lungs: clear to auscultation and normal air movement Airway: Mallampati scale class II Neurological: alert and oriented Last oral intake: >/= 8 hours ASA classification: I Emergent: no Anesthetic plan: proceed Anesthesia type and monitoring: general GIVS and standard monitoring Informed Consent: The patient's anesthetic plan and its attendant risks and benefits were discussed with the patient/family/POA. Questions were solicited and answers provided to the satisfaction of the patient/family/POA.
[2020-02-01 08:00] VITALS: BP 102/67; PULSE 66; RESP 18; O2SAT 100
--- NOTE | 2020-02-01 08:03 | PM.PROC ---
Procedure Note - Detailed Date of procedure: 02/01/20 Pre-op diagnosis: Uterine Polyp, Irregular Bleeding Surgeon: Shashi Rodriguez MD Postop diagnosis: Uterine polyp/irregular bleeding Procedure: Hysteroscopy/polypectomy /dilatation curettage Anesthesia: IV sedation local EBL: 5Cc Findings: 2 small degenerating polyps irregular endometrial tissue Complications: None Description of procedure. The patient was prepped and draped in the normal sterile fashion and placed in the dorsal lithotomy position. Under excellent IV sedation weighted speculum was placed in the posterior fornix of vagina. The anterior lip of the cervix was grasped with a single-tooth tenaculum. 2.5cc of 1% xylocaine anesthesia placed at 2/ 4 8 and 10:00 a.m. of the cervix. The uterus sounded to cyst 8cm. Serial dilatation with fragmented dilators performed. This was followed by passage of the 5mm visualizing hysteroscope using normal saline as visualizing medium. Some irregular polyps were seen 1 which appeared to be degenerating. Each fallopian tube os appeared within normal limits. The polyps were grasped with the polyp forceps and broken apart piecemeal. The uterus was then scraped within over the entire cyst at360? using a sharp curette. When a good grating sound was heard the instrument was removed. All sponge, needle, instrument counts were correct. The patient was awakened and went to recovery in satisfactory condition. There were no immediate complications
[2020-02-01 08:30] VITALS: BP 114/62; PULSE 58; RESP 18
[2020-02-01 09:00] VITALS: BP 121/80; PULSE 64; RESP 18
== END 2020-02-01 09:10 | disposition home or self-care (01) ==
PROVIDERS: Visit Provider Obstetrics & Gynecology
PROC: 0U5B8ZZ Destruction of Endometrium, Via Natural or Artificial Opening Endoscopic (ICD-10-PCS; CPT 58563; principal; 2020-02-01 07:30)
DX: N93.9 Abnormal uterine and vaginal bleeding, unspecified (principal); N85.8 Other specified noninflammatory disorders of uterus
CPT/HCPCS: 58558; 88305; A9270; J2250; J2704; J3010; J7030; J7120